=== PATIENT | male | born 1980 | race Caucasian/White ===

== ENCOUNTER 2016-07-17 12:32 | Inpatient (IN) | payer OTHER ==
[2016-07-17 16:54] VITALS: BMI 29.7
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
[2016-07-17] MEDS ORDERED: MAGNESIUM CITRATE 300 ML BOTTLE PO PRN (17:27)
[2016-07-17] MEDS ORDERED: MAG HYDROX/AL HYDROX/SIMETH 30 ML UNIT-DOSE CUP PO PRN (17:27)
[2016-07-17] MEDS ORDERED: MENTHOL/PHENOL 1 EACH UD MM PRN (17:27)
[2016-07-17] MEDS ORDERED: P-EPHED 60MG/TRIPROLIDI 2.5MG TABLET PO PRN (17:27)
[2016-07-17] MEDS ORDERED: LOPERAMIDE HCL 2 MG CAPSULE PO PRN (17:27)
[2016-07-17] MEDS ORDERED: guaiFENesin/D-METHORPHAN HB 10 ML UNIT-DOSE CUPS PO PRN (17:27)
[2016-07-17] MEDS ORDERED: NICOTINE POLACRILEX 4 MG GUM BUC PRN (17:27)
[2016-07-17] MEDS ORDERED: MAGNESIUM HYDROX 2400MG/30ML ORAL SUSPENSION 30 ML CUP PO PRN (17:27)
[2016-07-17] MEDS ORDERED: diazePAM 5 MG TABLET PO ONE (19:00)
[2016-07-17] MEDS ORDERED: diphenhydrAMINE HCL 50 MG CAPSULE PO PRN (22:00)
[2016-07-17] MEDS: IBUPROFEN 400 MG TABLET (FP) PO PRN (22:42)
[2016-07-17] MEDS: THIAMINE HCL 100 MG TABLET (FP) PO SCH (22:42)
[2016-07-17] MEDS: diazePAM 5 MG TABLET PO SCH (22:42)
[2016-07-17 23:11] LABS: URINE APPEARANCE CLEAR; URINE BILIRUBIN NEGATIVE (NEGATIVE); URINE BLOOD NEGATIVE (NEGATIVE); URINE COLOR YELLOW; URINE GLUCOSE (UA) NEGATIVE (NEGATIVE); URINE KETONE TRACE (NEGATIVE); URINE LEUK ESTERASE TRACE (NEGATIVE); URINE NITRITE NEGATIVE (NEGATIVE); URINE PROTEIN NEGATIVE (NEGATIVE); URINE UROBILINOGEN 4.0 E.U/dl E.U./dl (0.2-1.0)
[2016-07-17 23:18] LABS: URINE MUCUS RARE; URINE WBC 4 /hpf (3-5)
[2016-07-18] MEDS: diazePAM 5 MG TABLET PO SCH ×3 (05:57→22:11)
[2016-07-18 10:19] LABS: MCH 33.1 pg (25.7-33.7); MEAN CELL VOLUME 100.3 fl (80-96); PLATELET COUNT 174 K/MM3 (134-434); RDW 15.7 % (11.9-15.9); WHITE BLOOD COUNT 4.9 K/mm3 (4.0-10.0)
[2016-07-18] MEDS: PRENATAL VITAMINS W/ FOLIC ACID TABLET (FP) PO SCH (10:33)
[2016-07-18] MEDS: ACETAMINOPHEN 325 MG TABLET (FP) PO PRN (10:34)
[2016-07-18] MEDS: NICOTINE 21 MG/24 HOURS TOPICAL PATCH TD SCH (10:34)
[2016-07-18] MEDS: diazePAM 5 MG TABLET PO PRN ×2 (10:34→17:24)
[2016-07-18 10:40] LABS: ALBUMIN 3.7 g/dl (3.4-5.0); CALCIUM 8.9 mg/dL (8.5-10.1)
[2016-07-18 10:44] LABS: BILIRUBIN,TOTAL 0.7 mg/dL (0.2-1.0); COCKROFT - GAULT 79.48; CREATININE 1.6 mg/dL (0.7-1.3); TOT PROT 6.4 g/dl (6.4-8.2)
[2016-07-18] MEDS ORDERED: METHADONE HCL 40 MG DISPERSABLE TABLET PO ONE (11:00)
--- NOTE | 2016-07-18 13:44 | PN ---
S CIWA - CIWA Score Nausea/Vomitin Muscle Tremors: 3 Anxiety: 3 Agitation: 2 Paroxysmal Sweats: 1-Minimal Palms Moist Orientation: 0-Oriented Tacttile Disturbances: 1-Very Mild Itch/Numbness Auditory Disturbances: 1-Very Mild Visual Disturbances: 1-Very Mild Sensitivity Headache: 2-Mild CIWA-Ar Total Score: 17 BHS Progress Note (SOAP) Subjective: ALERT,IRRITABLE,ANXIOUS,INTERRUPTED SLEEP,TREMOR Objective: 07/18/16 13:41 Vital Signs Temperature 98.1 F 07/18/16 10:37 Pulse Rate 74 07/18/16 10:37 Respiratory Rate 18 07/18/16 10:37 Blood Pressure 152/94 07/18/16 10:37 O2 Sat by Pulse Oximetry (%) EKG NSR Laboratory Last Values WBC 4.9 K/mm3 (4.0-10.0) 07/18/16 06:05 RBC 4.23 M/mm3 (4.00-5.60) 07/18/16 06:05 Hgb 14.0 GM/dL (11.7-16.9) 07/18/16 06:05 Hct 42.5 % (35.4-49) 07/18/16 06:05 MCV 100.3 fl (80-96) H 07/18/16 06:05 MCHC 33.0 g/dl (32.0-35.9) 07/18/16 06:05 RDW 15.7 % (11.9-15.9) D 07/18/16 06:05 Plt Count 174 K/MM3 (134-434) 07/18/16 06:05 MPV 11.0 fl (7.5-11.1) D 07/18/16 06:05 Sodium 146 mmol/L (136-145) H 07/18/16 06:05 Potassium 4.3 mmol/L (3.5-5.1) 07/18/16 06:05 Chloride 104 mmol/L (98-107) 07/18/16 06:05 Carbon Dioxide 28 mmol/L (21-32) 07/18/16 06:05 Anion Gap 14 (8-16) 07/18/16 06:05 BUN 8 mg/dL (7-18) D 07/18/16 06:05 Creatinine 1.6 mg/dL (0.7-1.3) H D 07/18/16 06:05 Creat Clearance w eGFR 48.88 (>60) 07/18/16 06:05 Random Glucose 63 mg/dL (74-106) L 07/18/16 06:05 Calcium 8.9 mg/dL (8.5-10.1) 07/18/16 06:05 Total Bilirubin 0.7 mg/dL (0.2-1.0) 07/18/16 06:05 AST 19 U/L (15-37) D 07/18/16 06:05 ALT 32 U/L (12-78) D 07/18/16 06:05 Alkaline Phosphatase 117 U/L (45-117) 07/18/16 06:05 Total Protein 6.4 g/dl (6.4-8.2) 07/18/16 06:05 Albumin 3.7 g/dl (3.4-5.0) 07/18/16 06:05 Urine Color Yellow 07/17/16 20:34 Urine Appearance Clear 07/17/16 20:34 Urine pH 7.0 (5.0-8.0) D 07/17/16 20:34 Urine Protein Negative (NEGATIVE) 07/17/16 20:34 Urine Glucose (UA) Negative (NEGATIVE) 07/17/16 20:34 Urine Ketones Trace (NEGATIVE) H 07/17/16 20:34 Urine Blood Negative (NEGATIVE) 07/17/16 20:34 Urine Nitrite Negative (NEGATIVE) 07/17/16 20:34 Urine Bilirubin Negative (NEGATIVE) 07/17/16 20:34 Urine Urobilinogen 4.0 e.u/dl E.U./dl (0.2-1.0) 07/17/16 20:34 Ur Leukocyte Esterase Trace (NEGATIVE) H 07/17/16 20:34 Urine RBC None /hpf (0-3) 07/17/16 20:34 Urine WBC 4 /hpf (3-5) 07/17/16 20:34 Ur Epithelial Cells Rare /hpf (FEW) 07/17/16 20:34 Urine Mucus Rare 07/17/16 20:34 RPR Titer Nonreactive (NONREACTIVE) 07/18/16 06:05 07/18/16 13:43 Assessment: 07/18/16 13:43 WITHDRAWAL SYMPTOM 07/18/16 13:43 Plan: CONTINUE DETOX,ENCOURAGE ORAL FLUID
--- NOTE | 2016-07-18 14:28 | CONSULT ---
[facility] Psychiatric Consult - Data Date of interview: 07/18/16 Admission source: [facility] Identifying data: Readmission to [facility] for this 36 y/o male seeking detox treatment on for alcohol and xanax dependence.Patient is without children,domiciled (O setting),unemployed and supported on Public Assistance. Substance Abuse History: - Smoking Cessation. Smoking history: Current every day smoker. Have you smoked in the past 12 months: Yes. Aproximately how many cigarettes per day: 15. Cigars Per Day: 0. Hx Chewing Tobacco Use: No. Initiated information on smoking cessation: Yes. 'Breaking Loose' booklet given : 07/17/16. - Substance & Tx. History. Hx Alcohol Use: Yes. Hx Substance Use : Yes. Substance Use Type: Alcohol, Tranquilizers. Hx Substance Use Treatment : Yes. - Substances Abused. Alcohol. Route: Oral. Frequency: Daily. Amount used: gallon volka. Age of first use: 12. Date of Last Use: 07/17/16. Alprazolam (Xanax). Route: Oral. Frequency: Daily. Amount used: 10 mg. Age of first use: 14. Date of Last Use: 07/17/16. Confirmed by patient. Medical History: History ofsplenectomy (2013) and appendectomy (1984). Psychiatric History: Patient admits to a history of psychiatric hospitalizations at [facility] years ago.He states that he manufactured symptoms of depression/suicidal ideation in order to get [facility] to [facility] because he " had nowhere to go at the time." Mr Santos is currently on a methadone maintenance program (200 mg/day)at the [facility].He reports a remote history of suicide attempt via self-mutilation. Physical/Sexual Abuse/Trauma History: Patient denies. Additional Comment: Urine Drug Screen Results: BZO-Benzodiazepines, MTD- Methadone.Noted. Mental Status Exam - Mental Status Exam Alert and Oriented to: Time, Place, Person Cognitive Function: Good Patient Appearance: Unkempt, Disheveled Mood: Nervous, Withdrawn Affect: Mood Congruent, Constricted Patient Behavior: Fatigued, Appropriate, Cooperative Speech Pattern: Clear Voice Loudness: Normal Thought Process: Goal Oriented Thought Disorder: Not Present Hallucinations: Denies Suicidal Ideation: Denies Homicidal Ideation: Denies Insight/Judgement: Poor Sleep: Poorly, Difficulty falling asleep (requests ambien) Appetite: Good Muscle strength/Tone: Normal Gait/Station: Normal Psychiatric Findings - Problem List ([place] 1, 2,3) (1) Alcohol dependence with uncomplicated withdrawal Current Visit: Yes Status: Acute (2) Nicotine dependence Current Visit: Yes Status: Acute Qualifiers: Nicotine product type: cigarettes Substance use status: in withdrawal Qualified Code(s): F17.213 - Nicotine dependence, cigarettes, with withdrawal (3) Sedative, hypnotic or anxiolytic dependence with withdrawal, uncomplicated Current Visit: Yes Status: Acute (4) Opioid dependence on agonist therapy Current Visit: Yes Status: Acute (5) Substance induced mood disorder Current Visit: Yes Status: Acute (6) Insomnia Current Visit: Yes Status: Acute - Initial Treatment Plan Initial Treatment Plan: Psychoeducation.Detoxification.Sleep hygiene discussed with patient.Medication : ambien 5 mg po hs .Patient is made aware of potential for parasomnias.He agrees with this plan.Observation.NO script for ambien at discharge (patient is aware).
[2016-07-18] MEDS: CYCLOBENZAPRINE HCL 10 MG TABLET (FP) PO PRN (15:46)
[2016-07-18] MEDS: THIAMINE HCL 100 MG TABLET (FP) PO SCH (22:11)
[2016-07-18] MEDS: ZOLPIDEM TARTRATE 5 MG TABLET PO SCH (22:12)
[2016-07-19] MEDS: diazePAM 5 MG TABLET PO PRN ×3 (02:43→20:56)
[2016-07-19] MEDS: IBUPROFEN 400 MG TABLET (FP) PO PRN (02:46)
[2016-07-19] MEDS: METHADONE HCL 40 MG DISPERSABLE TABLET PO SCH (05:30)
[2016-07-19] MEDS: diazePAM 5 MG TABLET PO SCH ×2 (10:18→22:15)
[2016-07-19] MEDS: PRENATAL VITAMINS W/ FOLIC ACID TABLET (FP) PO SCH (10:18)
[2016-07-19] MEDS: NICOTINE 21 MG/24 HOURS TOPICAL PATCH TD SCH (10:19)
--- NOTE | 2016-07-19 11:14 | PN ---
S CIWA - CIWA Score Nausea/Vomitin Muscle Tremors: 3 Anxiety: 3 Agitation: 2 Paroxysmal Sweats: 1-Minimal Palms Moist Orientation: 0-Oriented Tacttile Disturbances: 1-Very Mild Itch/Numbness Auditory Disturbances: 1-Very Mild Visual Disturbances: 1-Very Mild Sensitivity Headache: 2-Mild CIWA-Ar Total Score: 17 BHS Progress Note (SOAP) Subjective: ALERT,IRRITABLE,ANXIOUS,PAIN IN THE BODY,TREMOR Objective: 07/19/16 11:13 Vital Signs Temperature 98.4 F 07/19/16 10:20 Pulse Rate 87 07/19/16 10:20 Respiratory Rate 18 07/19/16 10:20 Blood Pressure 146/95 07/19/16 10:20 O2 Sat by Pulse Oximetry (%) Assessment: 07/19/16 11:13 WITHDRAWAL SYMPTOM Plan: CONTINUE DETOX
[2016-07-19] MEDS: CYCLOBENZAPRINE HCL 10 MG TABLET (FP) PO PRN ×2 (13:54→22:15)
[2016-07-19] MEDS: ACETAMINOPHEN 325 MG TABLET (FP) PO PRN ×2 (13:55→20:56)
[2016-07-19] MEDS: ZOLPIDEM TARTRATE 5 MG TABLET PO SCH (22:15)
[2016-07-19] MEDS: THIAMINE HCL 100 MG TABLET (FP) PO SCH (22:15)
[2016-07-20] MEDS: METHADONE HCL 40 MG DISPERSABLE TABLET PO SCH (05:16)
[2016-07-20] MEDS: diazePAM 5 MG TABLET PO PRN (08:33)
[2016-07-20] MEDS: NICOTINE 21 MG/24 HOURS TOPICAL PATCH TD SCH (10:30)
[2016-07-20] MEDS: diazePAM 5 MG TABLET PO SCH ×2 (10:30→22:27)
[2016-07-20] MEDS: PRENATAL VITAMINS W/ FOLIC ACID TABLET (FP) PO SCH (10:30)
--- NOTE | 2016-07-20 10:35 | PN ---
BHS Progress Note (SOAP) Subjective: INTERRUPTED SLEEP, SWEATS, SHAKES , RESTLESS LEGS Objective: 07/20/16 10:32 Vital Signs Temperature 99.1 F 07/20/16 09:45 Pulse Rate 95 H 07/20/16 09:45 Respiratory Rate 20 07/20/16 09:45 Blood Pressure 121/90 07/20/16 09:45 O2 Sat by Pulse Oximetry (%) Laboratory Tests 07/17/16 07/18/16 07/18/16 20:34 06:05 06:05 WBC 4.9 RBC 4.23 Hgb 14.0 Hct 42.5 MCV 100.3 H MCHC 33.0 RDW 15.7 D Plt Count 174 MPV 11.0 D Sodium 146 H Potassium 4.3 Chloride 104 Carbon Dioxide 28 Anion Gap 14 BUN 8 D Creatinine 1.6 H D Creat Clearance w eGFR 48.88 Random Glucose 63 L Calcium 8.9 Total Bilirubin 0.7 AST 19 D ALT 32 D Alkaline Phosphatase 117 Total Protein 6.4 Albumin 3.7 Urine Color Yellow Urine Appearance Clear Urine pH 7.0 D Ur Specific Cornelius 1.015 Urine Protein Negative Urine Glucose (UA) Negative Urine Ketones Trace H Urine Blood Negative Urine Nitrite Negative Urine Bilirubin Negative Urine Urobilinogen 4.0 e.u/dl Ur Leukocyte Esterase Trace H Urine RBC None Urine WBC 4 Ur Epithelial Cells Rare Urine Mucus Rare RPR Titer 07/18/16 06:05 WBC RBC Hgb Hct MCV MCHC RDW Plt Count MPV Sodium Potassium Chloride Carbon Dioxide Anion Gap BUN Creatinine Creat Clearance w eGFR Random Glucose Calcium Total Bilirubin AST ALT Alkaline Phosphatase Total Protein Albumin Urine Color Urine Appearance Urine pH Ur Specific Cornelius Urine Protein Urine Glucose (UA) Urine Ketones Urine Blood Urine Nitrite Urine Bilirubin Urine Urobilinogen Ur Leukocyte Esterase Urine RBC Urine WBC Ur Epithelial Cells Urine Mucus RPR Titer Nonreactive PT AOX3 LYING IN BED SHAKING LEGS Assessment: 07/20/16 10:33 WITHDRAWAL SSX'S Plan: CONT. DETOX ' INCREASE FLUIDS FLEXEXERIL 10MG TID/PRN D/C IN AM
--- NOTE | 2016-07-20 13:05 | EKG ---
Test Reason : Blood Pressure : / mmHG Vent. Rate : 076 BPM Atrial Rate : 076 BPM P-R Int : 000 ms QRS Dur : 138 ms QT Int : 400 ms P-R-T Axes : 068 050 058 degrees QTc Int : 450 ms NORMAL SINUS RHYTHM RSR' OR QR PATTERN IN V1 SUGGESTS RIGHT VENTRICULAR CONDUCTION DELAY NONSPECIFIC T WAVE ABNORMALITY ABNORMAL ECG NO PREVIOUS ECGS AVAILABLE Confirmed by MELE THAKUR MD ([id number]) on 07/20/2016 1:05:23 PM Referred By: Confirmed By:MELE THAKUR MD
[2016-07-20 14:56] LABS: CALCIUM 9.1 mg/dL (8.5-10.1); COCKROFT - GAULT 141.31; CREATININE 0.9 mg/dL (0.7-1.3)
[2016-07-20] MEDS: CYCLOBENZAPRINE HCL 10 MG TABLET (FP) PO PRN (19:03)
[2016-07-20] MEDS: ACETAMINOPHEN 325 MG TABLET (FP) PO PRN (19:05)
[2016-07-20] MEDS: THIAMINE HCL 100 MG TABLET (FP) PO SCH (22:28)
[2016-07-20] MEDS: ZOLPIDEM TARTRATE 5 MG TABLET PO SCH (22:28)
[2016-07-21] MEDS: METHADONE HCL 40 MG DISPERSABLE TABLET PO SCH (05:28)
[2016-07-21 06:59] VITALS: TEMP 98.1
--- NOTE | 2016-07-21 08:35 | DS ---
[facility] Detox Discharge Summary Admission Date: 07/17/16 Discharge Date: 07/21/16 - History Present History: Alcohol Dependence, Cocaine Dependence, MMTP - Physical Exam Results Vital Signs: Vital Signs Temperature 98.1 F 07/21/16 06:00 Pulse Rate 58 L 07/21/16 06:00 Respiratory Rate 18 07/21/16 06:00 Blood Pressure 129/77 07/21/16 06:00 O2 Sat by Pulse Oximetry (%) - Treatment Hospital Course: Detox Protocol Followed, Detoxed Safely, Responded well, Discharged Condition Good, Rehab Referral Accepted - Medication Discharge Medications: Ambulatory Orders Gabapentin [Neurontin -] 300 mg PO TID #0 capsule 07/25/12 Amitriptyline HCl [Elavil -] 25 mg PO BID@1000,1400 #0 tablet 08/22/12 Amitriptyline HCl [Elavil -] 150 mg PO HS #0 tablet 08/22/12 Methadone [Dolophine -] 150 mg PO DAILY 10/31/12 - Diagnosis (1) Substance induced mood disorder Current Visit: Yes Status: Chronic (2) Alcohol dependence with uncomplicated withdrawal Current Visit: Yes Status: Chronic (3) Insomnia Current Visit: Yes Status: Chronic (4) Methadone maintenance therapy patient Current Visit: Yes Status: Chronic (5) Nicotine dependence Current Visit: Yes Status: Chronic Qualifiers: Nicotine product type: cigarettes Substance use status: in withdrawal Qualified Code(s): F17.213 - Nicotine dependence, cigarettes, with withdrawal (6) Sedative, hypnotic or anxiolytic dependence with withdrawal, uncomplicated Current Visit: Yes Status: Chronic (7) Depression (emotion) Current Visit: Yes Status: Suspected Qualifiers: Depression Type: dysthymia Qualified Code(s): F34.1 - Dysthymic disorder (8) S/P appendectomy Current Visit: Yes Status: Resolved (9) S/P splenectomy Current Visit: Yes Status: Resolved (10) Bipolar I disorder Current Visit: No Status: Active (11) Cocaine dependence Current Visit: Yes Status: Chronic - AMA Did Patient Leave Against Medical Advice: No
[2016-07-21 09:50] VITALS: BP 122/81; PULSE 94
[2016-07-21] MEDS ORDERED: diazePAM 5 MG TABLET PO SCH (10:00)
[2016-07-21] MEDS: PRENATAL VITAMINS W/ FOLIC ACID TABLET (FP) PO SCH (10:01)
[2016-07-21] MEDS: ACETAMINOPHEN 325 MG TABLET (FP) PO PRN (10:03)
== END 2016-07-21 10:13 | disposition home or self-care (01) | DRG 773 ==
LOC: YASAS 12:32 → Y6N 18:02
PROVIDERS: ADMIT Internal Medicine Addiction Medicine; ATTEND Internal Medicine Addiction Medicine
PROC: HZ2ZZZZ Detoxification Services for Substance Abuse Treatment (ICD-10-PCS; principal; 2016-07-17)
DX: F10.230 Alcohol dependence with withdrawal, uncomplicated (principal); F11.20 Opioid dependence, uncomplicated; F13.230 Sedative, hypnotic or anxiolytic dependence with withdrawal, uncomplicated; F14.20 Cocaine dependence, uncomplicated; F17.213 Nicotine dependence, cigarettes, with withdrawal; F19.24 Other psychoactive substance dependence with psychoactive substance-induced mood disorder; F34.1 Dysthymic disorder; F31.89 Other bipolar disorder; G47.00 Insomnia, unspecified; Z86.69 Personal history of other diseases of the nervous system and sense organs
CPT/HCPCS: 36415; 80048; 80053; 81003; 81015; 85027; 86593; 93005; 93010

== ENCOUNTER 2016-10-13 15:55 | Inpatient (IN) | payer OTHER ==
[2016-10-13 17:15] VITALS: BMI 24.3
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
[2016-10-13] MEDS ORDERED: P-EPHED 60MG/TRIPROLIDI 2.5MG TABLET PO PRN (19:14)
[2016-10-13] MEDS ORDERED: NICOTINE POLACRILEX 2 MG GUM BUC PRN (19:14)
[2016-10-13] MEDS ORDERED: LOPERAMIDE HCL 2 MG CAPSULE PO PRN (19:14)
[2016-10-13] MEDS ORDERED: MAG HYDROX/AL HYDROX/SIMETH 30 ML UNIT-DOSE CUP PO PRN (19:14)
[2016-10-13] MEDS ORDERED: diazePAM 5 MG TABLET PO ONE (19:14)
[2016-10-13] MEDS ORDERED: guaiFENesin/D-METHORPHAN HB 10 ML UNIT-DOSE CUPS PO PRN (19:14)
[2016-10-13] MEDS ORDERED: MAGNESIUM HYDROX 2400MG/30ML ORAL SUSPENSION 30 ML CUP PO PRN (19:14)
[2016-10-13] MEDS ORDERED: MENTHOL/PHENOL 1 EACH UD MM PRN (19:14)
[2016-10-13] MEDS ORDERED: MAGNESIUM CITRATE 300 ML BOTTLE PO PRN (19:14)
[2016-10-13] MEDS ORDERED: cloNIDine HCL 0.1 MG TABLET PO ONE (19:22)
[2016-10-13] MEDS ORDERED: BACITRACIN 15 GM TUBE TOPICAL OINTMENT TP SCH (22:00)
[2016-10-13] MEDS: diazePAM 5 MG TABLET PO SCH (22:40)
[2016-10-13] MEDS: GABAPENTIN 300 MG CAPSULE (FP) PO SCH (22:56)
[2016-10-13] MEDS: THIAMINE HCL 100 MG TABLET (FP) PO SCH (22:56)
[2016-10-13] MEDS: diphenhydrAMINE HCL 50 MG CAPSULE PO PRN (22:57)
[2016-10-13] MEDS: IBUPROFEN 400 MG TABLET (FP) PO PRN (22:57)
[2016-10-14 00:58] LABS: URINE APPEARANCE CLEAR; URINE BILIRUBIN NEGATIVE (NEGATIVE); URINE BLOOD NEGATIVE (NEGATIVE); URINE COLOR YELLOW; URINE GLUCOSE (UA) NEGATIVE (NEGATIVE); URINE KETONE NEGATIVE (NEGATIVE); URINE LEUK ESTERASE TRACE (NEGATIVE); URINE NITRITE NEGATIVE (NEGATIVE); URINE PROTEIN NEGATIVE (NEGATIVE)
[2016-10-14 01:18] LABS: URINE RBC <1 /hpf (0-3); URINE WBC <1 /hpf (3-5)
[2016-10-14] MEDS: diazePAM 5 MG TABLET PO SCH ×3 (05:38→22:37)
[2016-10-14] MEDS: GABAPENTIN 300 MG CAPSULE (FP) PO SCH ×3 (05:38→22:37)
[2016-10-14] MEDS: ACETAMINOPHEN 325 MG TABLET (FP) PO PRN ×2 (05:38→15:25)
[2016-10-14] MEDS: PRENATAL VITAMINS W/ FOLIC ACID TABLET (FP) PO SCH ×2 (08:48→09:41)
[2016-10-14] MEDS: diazePAM 5 MG TABLET PO PRN ×2 (08:48→17:20)
[2016-10-14] MEDS: NICOTINE 14 MG/24 HOURS TOPICAL PATCH TD SCH ×2 (08:48→09:40)
[2016-10-14] MEDS: IBUPROFEN 400 MG TABLET (FP) PO PRN (09:06)
[2016-10-14] MEDS ORDERED: cloNIDine HCL 0.1 MG TABLET PO ONE ×2 (09:50→18:00)
[2016-10-14 09:59] LABS: MCH 34.1 pg (25.7-33.7); MEAN CELL VOLUME 103.1 fl (80-96); MEAN PLT VOLUME 9.3 fl (7.5-11.1); PLATELET COUNT 170 K/MM3 (134-434); RDW 15.3 % (11.9-15.9); WHITE BLOOD COUNT 5.8 K/mm3 (4.0-10.0)
[2016-10-14] MEDS ORDERED: METHADONE HCL 10 MG TABLET PO SCH (10:00)
[2016-10-14] MEDS ORDERED: METHADONE 160 MG, METHADONE 10 MG PO SCH (10:10)
[2016-10-14] MEDS ORDERED: METHADONE HCL 10 MG TABLET ONE (10:15)
[2016-10-14] MEDS ORDERED: METHADONE HCL 40 MG DISPERSABLE TABLET ONE (10:16)
[2016-10-14] MEDS: BACITRACIN 0.9 GM PACKET TP SCH ×2 (10:19→22:37)
[2016-10-14 10:49] LABS: ALBUMIN 2.8 g/dl (3.4-5.0); ALK PHOS 75 U/L (45-117); ANION GAP 11 (8-16); BILIRUBIN,TOTAL 0.5 mg/dL (0.2-1.0); CALCIUM 8.4 mg/dL (8.5-10.1); CO2 29 mmol/L (21-32); CREATININE 0.6 mg/dL (0.7-1.3); GLUCOSE,RANDOM 66 mg/dL (74-106); SGOT/AST 31 U/L (15-37); SGPT/ALT 17 U/L (12-78); TOT PROT 5.7 g/dl (6.4-8.2)
--- NOTE | 2016-10-14 11:43 | PN ---
S CIWA - CIWA Score Nausea/Vomitin Muscle Tremors: 5 Anxiety: 4-Mod. Anxious/Guarded Agitation: 0-Normal Activity Paroxysmal Sweats: 3 Orientation: 2-Disoriented Date<2 days Tacttile Disturbances: 2-Mild Itch/Numbness/Burn Auditory Disturbances: 0-None Visual Disturbances: 0-None Headache: 2-Mild CIWA-Ar Total Score: 20 BHS Progress Note (SOAP) Subjective: Interrupted Sleep, tremors, H/A, Body Aches, Sweating. Objective: PT. A & O X 2 (DISORIENTED ABOUT DAY / DATE). PT. OBSERVED AMBULATING ON UNIT. NO ACUTE DISTRESS. 10/14/16 11:40 Vital Signs Temperature 97.4 F L 10/14/16 09:37 Pulse Rate 76 10/14/16 09:37 Respiratory Rate 18 10/14/16 09:37 Blood Pressure 135/88 10/14/16 09:37 O2 Sat by Pulse Oximetry (%) Laboratory Tests 10/14/16 10/14/16 10/14/16 00:30 07:40 07:40 WBC 5.8 RBC 3.30 L D Hgb 11.2 L D Hct 34.0 L D MCV 103.1 H MCH 34.1 H MCHC 33.0 RDW 15.3 Plt Count 170 MPV 9.3 D Sodium 142 Potassium 3.4 L Chloride 102 Carbon Dioxide 29 Anion Gap 11 BUN 8 D Creatinine 0.6 L D Creat Clearance w eGFR > 60 Random Glucose 66 L D Calcium 8.4 L Total Bilirubin 0.5 D AST 31 D ALT 17 D Alkaline Phosphatase 75 D Total Protein 5.7 L Albumin 2.8 L D Urine Color Yellow Urine Appearance Clear Urine pH 5.0 D Urine Protein Negative Urine Glucose (UA) Negative Urine Ketones Negative Urine Blood Negative Urine Nitrite Negative Urine Bilirubin Negative Urine Urobilinogen 2.0 Ur Leukocyte Esterase Trace Urine RBC <1 Urine WBC <1 RPR Titer 10/14/16 07:40 WBC RBC Hgb Hct MCV MCH MCHC RDW Plt Count MPV Sodium Potassium Chloride Carbon Dioxide Anion Gap BUN Creatinine Creat Clearance w eGFR Random Glucose Calcium Total Bilirubin AST ALT Alkaline Phosphatase Total Protein Albumin Urine Color Urine Appearance Urine pH Urine Protein Urine Glucose (UA) Urine Ketones Urine Blood Urine Nitrite Urine Bilirubin Urine Urobilinogen Ur Leukocyte Esterase Urine RBC Urine WBC RPR Titer Nonreactive LABS NOTED. Assessment: WITHDRAWAL SYMPTOMS. 10/14/16 11:42 Plan: CONTINUE DETOX. FEOSOL, 325 MG PO WITH MEALS. K, 20 MEQ PO X 1 NOW, THEN 20 MEQ PO BID AFTER. CLONIDINE, 0.1 MG PO x 1 FOR DETOX SYMPTOMS. NOTE: PER MMTP PROGRAM, PATIENT IS CURRENTLY HAVING DAILY METHADONE MAINTENANCE DOSE TITRATED UP TO 200 MG. VERIFIED WITH Shaniqua STOVER RN ([facility], ) BY Kelly CONTRERAS RN.
[2016-10-14] MEDS: POTASSIUM CHLORIDE TABS 20 MEQ TABLET.ER (FP) PO SCH ×2 (13:39→22:37)
[2016-10-14] MEDS: hydrOXYzine PAMOATE 50 MG CAPSULE (FP) PO PRN ×2 (13:41→19:12)
--- NOTE | 2016-10-14 14:50 | EKG ---
Test Reason : Blood Pressure : / mmHG Vent. Rate : 101 BPM Atrial Rate : 101 BPM P-R Int : 182 ms QRS Dur : 092 ms QT Int : 366 ms P-R-T Axes : 058 037 044 degrees QTc Int : 474 ms SINUS TACHYCARDIA POSSIBLE LEFT ATRIAL ENLARGEMENT BORDERLINE ECG WHEN COMPARED WITH ECG OF 17-JUL-2016 19:20, NO SIGNIFICANT CHANGE WAS FOUND Confirmed by OSCAR FAUSTIN MD ([id number]) on 10/14/2016 2:50:23 PM Referred By: Confirmed By:OSCAR FAUSTNI MD
--- NOTE | 2016-10-14 14:54 | CONSULT ---
[facility] Psychiatric Consult - Data Date of interview: 10/14/16 Admission source: [facility] Identifying data: Another admission to [facility] for this 36 y/o [place]-born male seeking detox treatment on for alcohol and xanax dependence.Patient is without children,domiciled ([facility] setting), unemployed and supported on Public Assistance. Substance Abuse History: Discussed with patient.Mr Santos confirms this report. Smoking Cessation. Smoking history: Current every day smoker. Have you smoked in the past 12 months: Yes. Aproximately how many cigarettes per day: 15. Cigars Per Day: 0. Hx Chewing Tobacco Use: No. Initiated information on smoking cessation: Yes. 'Breaking Loose' booklet given: 10/13/16. - Substance & Tx. History. Hx Alcohol Use: Yes. Hx Substance Use: Yes. Substance Use Type : Alcohol. Hx Substance Use Treatment: Yes (DETOX: 07/2016). - Substances Abused. Alcohol. Frequency: Daily. Amount used: 1/2 GALLON OF LIQUOR. Age of first use: 11. Date of Last Use: 10/13/16. Alprazolam (Xanax). Route: Oral. Frequency: Daily. Amount used: 8MG. Age of first use: 20. Date of Last Use: 10/12/16 Medical History: History ofsplenectomy (2013) and appendectomy (1984). Psychiatric History: History of three psychiatric hospitalizations (all at [facility]) years ago.No OPD care for several months. Mr Santos is currently on a methadone maintenance program (190 mg/day) at the [facility].He reports a remote history of suicide attempt via self- mutilation. Physical/Sexual Abuse/Trauma History: Patient denies. Additional Comment: Urine Drug Screen Results: BZO-Benzodiazepines, MTD- Methadone.Noted. Mental Status Exam - Mental Status Exam Alert and Oriented to: Time, Place, Person Cognitive Function: Good Patient Appearance: Unkempt, Disheveled Mood: Withdrawn, Anxious Affect: Constricted Patient Behavior: Fatigued, Appropriate, Cooperative Speech Pattern: Clear Voice Loudness: Normal Thought Process: Goal Oriented Thought Disorder: Not Present Hallucinations: Denies Suicidal Ideation: Denies Homicidal Ideation: Denies Insight/Judgement: Poor Sleep: Poorly, Difficulty falling asleep Appetite: Good Muscle strength/Tone: Normal Gait/Station: Normal Psychiatric Findings - Problem List ([place] 1, 2,3) (1) Alcohol dependence with uncomplicated withdrawal Current Visit: Yes Status: Acute (2) Sedative, hypnotic or anxiolytic dependence with withdrawal, uncomplicated Current Visit: Yes Status: Acute (3) Opioid dependence on agonist therapy Current Visit: Yes Status: Acute (4) Nicotine dependence Current Visit: Yes Status: Acute Qualifiers: Nicotine product type: cigarettes Substance use status: in withdrawal Qualified Code(s): F17.213 - Nicotine dependence, cigarettes, with withdrawal (5) Substance induced mood disorder Current Visit: Yes Status: Acute (6) Insomnia Current Visit: Yes Status: Acute - Initial Treatment Plan Initial Treatment Plan: Psychoeducation.Detoxification.Ambien 10 mg po hs.Patient is made aware of potential for parasomnias.He agrees with careplan.Observation.
--- NOTE | 2016-10-14 15:06 | PN ---
S Progress Note Note: BP still elevated (141/95) and patient currently experiencing significant Detox symptoms. Patient denies any history of HTN or of treatment for HTN. Clonidine, 0.1 mg PO X 1 ordered for 1800. Rogerio Lubin HAMMER[employer] HELPER
[2016-10-14] MEDS: FERROUS SO4 325 MG TABLET (FP) PO SCH (17:20)
[2016-10-14] MEDS: ZOLPIDEM TARTRATE 10 MG TABLET (PARK CARE ONLY) PO PRN (22:37)
[2016-10-14] MEDS: THIAMINE HCL 100 MG TABLET (FP) PO SCH (22:37)
[2016-10-15] MEDS ORDERED: METHADONE HCL 10 MG TABLET ONE (04:03)
[2016-10-15] MEDS ORDERED: METHADONE HCL 40 MG DISPERSABLE TABLET ONE (04:03)
[2016-10-15] MEDS: diazePAM 5 MG TABLET PO PRN ×2 (05:39→14:11)
[2016-10-15] MEDS: GABAPENTIN 300 MG CAPSULE (FP) PO SCH ×3 (05:39→22:41)
[2016-10-15] MEDS ORDERED: METHADONE HCL 10 MG TABLET PO ONE (06:00)
[2016-10-15] MEDS ORDERED: METHADONE 160 MG, METHADONE 20 MG PO ONE (06:00)
[2016-10-15] MEDS ORDERED: METHADONE HCL 10 MG TABLET PO SCH (06:00)
[2016-10-15] MEDS: ACETAMINOPHEN 325 MG TABLET (FP) PO PRN ×2 (07:32→22:44)
[2016-10-15] MEDS: hydrOXYzine PAMOATE 50 MG CAPSULE (FP) PO PRN ×2 (07:32→17:07)
[2016-10-15] MEDS: FERROUS SO4 325 MG TABLET (FP) PO SCH ×2 (10:04→17:04)
--- NOTE | 2016-10-15 10:16 | PN ---
[facility] CIWA - CIWA Score Nausea/Vomitin Muscle Tremors: 3 Anxiety: 4-Mod. Anxious/Guarded Agitation: 3 Paroxysmal Sweats: 3 Orientation: 0-Oriented Tacttile Disturbances: 0-None Auditory Disturbances: 0-None Visual Disturbances: 0-None Headache: 0-None Present CIWA-Ar Total Score: 16 S Progress Note (SOAP) Subjective: Anxiety,tremors,sweating,interrupted sleep,restless. C/O draining abscess rt. arm in the bicep area. Objective: 10/15/16 10:15 Vital Signs - 8 hr 10/15/16 10/15/16 10/15/16 04:19 06:44 09:25 Temperature 97.1 F L 98.9 F Pulse Rate 68 74 Respiratory 18 20 18 Rate Blood Pressure 150/97 138/92 Laboratory Last Values WBC 5.8 K/mm3 (4.0-10.0) 10/14/16 07:40 RBC 3.30 M/mm3 (4.00-5.60) L D 10/14/16 07:40 Hgb 11.2 GM/dL (11.7-16.9) L D 10/14/16 07:40 Hct 34.0 % (35.4-49) L D 10/14/16 07:40 MCV 103.1 fl (80-96) H 10/14/16 07:40 MCH 34.1 pg (25.7-33.7) H 10/14/16 07:40 MCHC 33.0 g/dl (32.0-35.9) 10/14/16 07:40 RDW 15.3 % (11.9-15.9) 10/14/16 07:40 Plt Count 170 K/MM3 (134-434) 10/14/16 07:40 MPV 9.3 fl (7.5-11.1) D 10/14/16 07:40 Sodium 142 mmol/L (136-145) 10/14/16 07:40 Potassium 3.4 mmol/L (3.5-5.1) L 10/14/16 07:40 Chloride 102 mmol/L (98-107) 10/14/16 07:40 Carbon Dioxide 29 mmol/L (21-32) 10/14/16 07:40 Anion Gap 11 (8-16) 10/14/16 07:40 BUN 8 mg/dL (7-18) D 10/14/16 07:40 Creatinine 0.6 mg/dL (0.7-1.3) L D 10/14/16 07:40 Creat Clearance w eGFR > 60 (>60) 10/14/16 07:40 Random Glucose 66 mg/dL (74-106) L D 10/14/16 07:40 Calcium 8.4 mg/dL (8.5-10.1) L 10/14/16 07:40 Total Bilirubin 0.5 mg/dL (0.2-1.0) D 10/14/16 07:40 AST 31 U/L (15-37) D 10/14/16 07:40 ALT 17 U/L (12-78) D 10/14/16 07:40 Alkaline Phosphatase 75 U/L (45-117) D 10/14/16 07:40 Total Protein 5.7 g/dl (6.4-8.2) L 10/14/16 07:40 Albumin 2.8 g/dl (3.4-5.0) L D 10/14/16 07:40 Urine Color Yellow 10/14/16 00:30 Urine Appearance Clear 10/14/16 00:30 Urine pH 5.0 (5.0-8.0) D 10/14/16 00:30 Ur Specific [place] 1.025 (1.005-1.025) 10/14/16 00:30 Urine Protein Negative (NEGATIVE) 10/14/16 00:30 Urine Glucose (UA) Negative (NEGATIVE) 10/14/16 00:30 Urine Ketones Negative (NEGATIVE) 10/14/16 00:30 Urine Blood Negative (NEGATIVE) 10/14/16 00:30 Urine Nitrite Negative (NEGATIVE) 10/14/16 00:30 Urine Bilirubin Negative (NEGATIVE) 10/14/16 00:30 Urine Urobilinogen 2.0 mg/dL (0.2-1.0) 10/14/16 00:30 Ur Leukocyte Esterase Trace (NEGATIVE) 10/14/16 00:30 Urine RBC <1 /hpf (0-3) 10/14/16 00:30 Urine WBC <1 /hpf (3-5) 10/14/16 00:30 RPR Titer Nonreactive (NONREACTIVE) 10/14/16 07:40 labs noted Assessment: 10/15/16 10:16 Withdrawal sx. Plan: continue detox
[2016-10-15] MEDS: BACITRACIN 0.9 GM PACKET TP SCH ×2 (11:04→22:41)
[2016-10-15] MEDS: POTASSIUM CHLORIDE TABS 20 MEQ TABLET.ER (FP) PO SCH ×2 (11:04→22:42)
[2016-10-15] MEDS: PRENATAL VITAMINS W/ FOLIC ACID TABLET (FP) PO SCH (11:04)
[2016-10-15] MEDS: diazePAM 5 MG TABLET PO SCH ×2 (11:04→22:42)
[2016-10-15] MEDS: IBUPROFEN 400 MG TABLET (FP) PO PRN ×2 (11:06→17:07)
[2016-10-15] MEDS: NICOTINE 14 MG/24 HOURS TOPICAL PATCH TD SCH (11:08)
[2016-10-15] MEDS: SULFAMETHOXAZOLE/TRIMETHOPRIM 800MG/160MG D.S. TABLET PO SCH ×3 (14:08→22:50)
[2016-10-15] MEDS: THIAMINE HCL 100 MG TABLET (FP) PO SCH (22:41)
[2016-10-15] MEDS: ZOLPIDEM TARTRATE 10 MG TABLET (PARK CARE ONLY) PO PRN (22:41)
[2016-10-16] MEDS: diphenhydrAMINE HCL 50 MG CAPSULE PO PRN (01:01)
[2016-10-16] MEDS: diazePAM 5 MG TABLET PO PRN ×2 (03:42→13:55)
[2016-10-16] MEDS: ACETAMINOPHEN 325 MG TABLET (FP) PO PRN ×3 (03:43→22:26)
[2016-10-16] MEDS ORDERED: METHADONE HCL 40 MG DISPERSABLE TABLET ONE (04:57)
[2016-10-16] MEDS ORDERED: METHADONE HCL 10 MG TABLET ONE (04:57)
[2016-10-16] MEDS: GABAPENTIN 300 MG CAPSULE (FP) PO SCH ×3 (05:26→22:26)
[2016-10-16] MEDS ORDERED: METHADONE HCL 10 MG TABLET PO ONE ×2 (06:00)
[2016-10-16] MEDS ORDERED: METHADONE 160 MG, METHADONE 30 MG PO ONE (06:00)
[2016-10-16] MEDS: BACITRACIN 0.9 GM PACKET TP SCH ×2 (10:37→22:25)
[2016-10-16] MEDS: FERROUS SO4 325 MG TABLET (FP) PO SCH ×2 (10:37→17:33)
[2016-10-16] MEDS: PRENATAL VITAMINS W/ FOLIC ACID TABLET (FP) PO SCH (10:37)
[2016-10-16] MEDS: SULFAMETHOXAZOLE/TRIMETHOPRIM 800MG/160MG D.S. TABLET PO SCH ×4 (10:37→22:26)
[2016-10-16] MEDS: NICOTINE 14 MG/24 HOURS TOPICAL PATCH TD SCH (10:37)
[2016-10-16] MEDS: diazePAM 5 MG TABLET PO SCH ×2 (10:37→22:25)
[2016-10-16] MEDS: POTASSIUM CHLORIDE TABS 20 MEQ TABLET.ER (FP) PO SCH ×2 (10:37→22:26)
[2016-10-16] MEDS: IBUPROFEN 400 MG TABLET (FP) PO PRN (10:38)
--- NOTE | 2016-10-16 15:03 | PN ---
BHS Progress Note (SOAP) Subjective: Sweating, Vomiting, Body Aches, Tremors, H/A, Interrupted sleep. Objective: PT. A & O X 1 (DISORIENTED ABOUT DAY / DATE AND ABOUT CURRENT LOCATION). NO ACUTE DISTRESS. 10/16/16 15:00 Vital Signs Temperature 97.5 F L 10/16/16 13:30 Pulse Rate 90 10/16/16 13:30 Respiratory Rate 18 10/16/16 13:30 Blood Pressure 119/88 10/16/16 13:30 O2 Sat by Pulse Oximetry (%) Laboratory Tests 10/14/16 10/14/16 10/14/16 00:30 07:40 07:40 WBC 5.8 RBC 3.30 L D Hgb 11.2 L D Hct 34.0 L D MCV 103.1 H MCH 34.1 H MCHC 33.0 RDW 15.3 Plt Count 170 MPV 9.3 D Sodium 142 Potassium 3.4 L Chloride 102 Carbon Dioxide 29 Anion Gap 11 BUN 8 D Creatinine 0.6 L D Creat Clearance w eGFR > 60 Random Glucose 66 L D Calcium 8.4 L Total Bilirubin 0.5 D AST 31 D ALT 17 D Alkaline Phosphatase 75 D Total Protein 5.7 L Albumin 2.8 L D Urine Color Yellow Urine Appearance Clear Urine pH 5.0 D Ur Specific [place] 1.025 Urine Protein Negative Urine Glucose (UA) Negative Urine Ketones Negative Urine Blood Negative Urine Nitrite Negative Urine Bilirubin Negative Urine Urobilinogen 2.0 Ur Leukocyte Esterase Trace Urine RBC <1 Urine WBC <1 RPR Titer 10/14/16 07:40 WBC RBC Hgb Hct MCV MCH MCHC RDW Plt Count MPV Sodium Potassium Chloride Carbon Dioxide Anion Gap BUN Creatinine Creat Clearance w eGFR Random Glucose Calcium Total Bilirubin AST ALT Alkaline Phosphatase Total Protein Albumin Urine Color Urine Appearance Urine pH Ur Specific [place] Urine Protein Urine Glucose (UA) Urine Ketones Urine Blood Urine Nitrite Urine Bilirubin Urine Urobilinogen Ur Leukocyte Esterase Urine RBC Urine WBC RPR Titer Nonreactive LABS NOTED. Assessment: 10/16/16 15:01 WITHDRAWAL SYMPTOMS. Plan: CONTINUE DETOX.
[2016-10-16] MEDS: hydrOXYzine PAMOATE 50 MG CAPSULE (FP) PO PRN ×2 (15:31→20:29)
[2016-10-16] MEDS: THIAMINE HCL 100 MG TABLET (FP) PO SCH (22:26)
[2016-10-16] MEDS: ZOLPIDEM TARTRATE 10 MG TABLET (PARK CARE ONLY) PO PRN (22:26)
[2016-10-17] MEDS: GABAPENTIN 300 MG CAPSULE (FP) PO SCH (05:23)
[2016-10-17] MEDS ORDERED: METHADONE HCL 40 MG DISPERSABLE TABLET PO ONE (06:00)
[2016-10-17] MEDS: hydrOXYzine PAMOATE 50 MG CAPSULE (FP) PO PRN ×2 (06:38→11:28)
[2016-10-17] MEDS: FERROUS SO4 325 MG TABLET (FP) PO SCH (07:06)
[2016-10-17 09:23] VITALS: BP 116/90; PULSE 101; TEMP 98.7
[2016-10-17] MEDS ORDERED: diazePAM 5 MG TABLET PO SCH (10:00)
[2016-10-17] MEDS: BACITRACIN 0.9 GM PACKET TP SCH (10:28)
[2016-10-17] MEDS: POTASSIUM CHLORIDE TABS 20 MEQ TABLET.ER (FP) PO SCH (10:28)
[2016-10-17] MEDS: PRENATAL VITAMINS W/ FOLIC ACID TABLET (FP) PO SCH (10:28)
[2016-10-17] MEDS: SULFAMETHOXAZOLE/TRIMETHOPRIM 800MG/160MG D.S. TABLET PO SCH (10:28)
[2016-10-17] MEDS: NICOTINE 14 MG/24 HOURS TOPICAL PATCH TD SCH (10:58)
--- NOTE | 2016-10-17 14:12 | DS ---
[facility] Detox Discharge Summary Admission Date: 10/13/16 Discharge Date: 10/17/16 - History Present History: Alcohol Dependence, Sedative Dependence, MMTP Additional Comments: PATIENT GOING TO [facility]. PATIENT ADVISED TO FOLLOW-UP THERE FOR AFTERCARE PER DISCHARGE ARRANGEMENT. PATIENT ALSO ADVISED TO COMPLETE FULL COURSE OF ANTIBIOTIC (BACTRIM DS, PO QID X 7 DAYS) FOR WOUND ON RIGHT UPPER ARM. Pertinent Past History: Bipolar disorder, Depression / Anxiety, Insomnia, MMTP, History of Seizures ( ETOH-Related). - Physical Exam Results Vital Signs: Vital Signs Temperature 98.7 F 10/17/16 09:22 Pulse Rate 101 H 10/17/16 09:22 Respiratory Rate 20 10/17/16 09:22 Blood Pressure 116/90 10/17/16 09:22 O2 Sat by Pulse Oximetry (%) Pertinent Admission Physical Exam Findings: WITHDRAWAL SYMPTOMS. Laboratory Tests 10/14/16 10/14/16 10/14/16 00:30 07:40 07:40 WBC 5.8 RBC 3.30 L D Hgb 11.2 L D Hct 34.0 L D MCV 103.1 H MCH 34.1 H MCHC 33.0 RDW 15.3 Plt Count 170 MPV 9.3 D Sodium 142 Potassium 3.4 L Chloride 102 Carbon Dioxide 29 Anion Gap 11 BUN 8 D Creatinine 0.6 L D Creat Clearance w eGFR > 60 Random Glucose 66 L D Calcium 8.4 L Total Bilirubin 0.5 D AST 31 D ALT 17 D Alkaline Phosphatase 75 D Total Protein 5.7 L Albumin 2.8 L D Urine Color Yellow Urine Appearance Clear Urine pH 5.0 D Ur Specific [place] 1.025 Urine Protein Negative Urine Glucose (UA) Negative Urine Ketones Negative Urine Blood Negative Urine Nitrite Negative Urine Bilirubin Negative Urine Urobilinogen 2.0 Ur Leukocyte Esterase Trace Urine RBC <1 Urine WBC <1 RPR Titer 10/14/16 07:40 WBC RBC Hgb Hct MCV MCH MCHC RDW Plt Count MPV Sodium Potassium Chloride Carbon Dioxide Anion Gap BUN Creatinine Creat Clearance w eGFR Random Glucose Calcium Total Bilirubin AST ALT Alkaline Phosphatase Total Protein Albumin Urine Color Urine Appearance Urine pH Ur Specific [place] Urine Protein Urine Glucose (UA) Urine Ketones Urine Blood Urine Nitrite Urine Bilirubin Urine Urobilinogen Ur Leukocyte Esterase Urine RBC Urine WBC RPR Titer Nonreactive LABS NOTED. - Treatment Hospital Course: Detox Protocol Followed, Detoxed Safely, Responded well, Discharged Condition Good, Rehab Referral Accepted Patient has Accepted a Rehab Referral to: [facility]. - Medication Discharge Medications: Ambulatory Orders Gabapentin [Neurontin -] 300 mg PO TID #0 capsule 07/25/12 - Diagnosis (1) Alcohol dependence with uncomplicated withdrawal Status: Acute (2) Insomnia Status: Acute Qualifiers: Insomnia type: unspecified Qualified Code(s): G47.00 - Insomnia, unspecified (3) Sedative, hypnotic or anxiolytic dependence with withdrawal, uncomplicated Status: Acute (4) Substance induced mood disorder Status: Acute (5) Methadone maintenance therapy patient Status: Chronic (6) Nicotine dependence Status: Chronic Qualifiers: Nicotine product type: cigarettes Substance use status: uncomplicated Qualified Code(s): F17.210 - Nicotine dependence, cigarettes, uncomplicated (7) Opioid dependence on agonist therapy Status: Chronic - AMA Did Patient Leave Against Medical Advice: No
== END 2016-10-17 11:35 | disposition other institution (70) | DRG 773 ==
LOC: YASAS 15:55 → Y3N 19:40
PROVIDERS: ADMIT Internal Medicine; ATTEND Internal Medicine
PROC: HZ2ZZZZ Detoxification Services for Substance Abuse Treatment (ICD-10-PCS; principal; 2016-10-13)
DX: F13.230 Sedative, hypnotic or anxiolytic dependence with withdrawal, uncomplicated (principal); F10.230 Alcohol dependence with withdrawal, uncomplicated; F11.20 Opioid dependence, uncomplicated; F17.210 Nicotine dependence, cigarettes, uncomplicated; F19.24 Other psychoactive substance dependence with psychoactive substance-induced mood disorder; G47.00 Insomnia, unspecified; Z86.69 Personal history of other diseases of the nervous system and sense organs
CPT/HCPCS: 36415; 80053; 81003; 81015; 85027; 86593; 93005; 93010

== ENCOUNTER 2016-10-17 12:01 | Inpatient (IN) | payer OTHER ==
[2016-10-17 13:25] VITALS: BMI 28.1
--- NOTE | 2016-10-17 13:41 | DS ---
[facility] Detox Discharge Summary Admission Date: 10/17/16 Discharge Date: 10/17/16 - History Present History: Alcohol Dependence, Sedative Dependence, MMTP Additional Comments: PT. GOING TO [facility]. PATIENT ADVISED TO FOLLOW-UP THERE PER DISCHARGE ARRANGEMENT. Pertinent Past History: Depression / Anxiety, Bipolar disorder, MMTP, History of Seizures (ETOH-Related) , Insomnia. - Physical Exam Results Vital Signs: Vital Signs Temperature 98.6 F 10/17/16 13:07 Pulse Rate 93 H 10/17/16 13:07 Respiratory Rate 20 10/17/16 13:07 Blood Pressure 122/75 10/17/16 13:07 O2 Sat by Pulse Oximetry (%) Pertinent Admission Physical Exam Findings: WITHDRAWAL SYMPTOMS. ADMISSION LABS NOTED. - Treatment Hospital Course: Detox Protocol Followed, Detoxed Safely, Responded well, Discharged Condition Good, Rehab Referral Accepted Patient has Accepted a Rehab Referral to: [facility]. - Medication Discharge Medications: Ambulatory Orders Gabapentin [Neurontin -] 300 mg PO TID #0 capsule 07/25/12 - Diagnosis (1) Alcohol dependence with uncomplicated withdrawal Current Visit: Yes Status: Acute (2) Insomnia Current Visit: Yes Status: Acute Qualifiers: Insomnia type: unspecified Qualified Code(s): G47.00 - Insomnia, unspecified (3) Nicotine dependence Current Visit: Yes Status: Chronic Qualifiers: Nicotine product type: cigarettes Substance use status: uncomplicated Qualified Code(s): F17.210 - Nicotine dependence, cigarettes, uncomplicated (4) Opioid dependence on agonist therapy Current Visit: Yes Status: Chronic (5) Sedative, hypnotic or anxiolytic dependence with withdrawal, uncomplicated Current Visit: Yes Status: Acute (6) Substance induced mood disorder Current Visit: Yes Status: Acute (7) Methadone maintenance therapy patient Current Visit: Yes Status: Chronic - AMA Did Patient Leave Against Medical Advice: No
[2016-10-17] MEDS ORDERED: MAG HYDROX/AL HYDROX/SIMETH 30 ML UNIT-DOSE CUP PO PRN (13:50)
[2016-10-17] MEDS ORDERED: MENTHOL/PHENOL 1 EACH UD MM PRN (13:50)
[2016-10-17] MEDS ORDERED: NICOTINE POLACRILEX 2 MG GUM BUC PRN (13:50)
[2016-10-17] MEDS ORDERED: guaiFENesin/D-METHORPHAN HB 10 ML UNIT-DOSE CUPS PO PRN (13:50)
[2016-10-17] MEDS ORDERED: MAGNESIUM CITRATE 300 ML BOTTLE PO PRN (13:50)
[2016-10-17] MEDS ORDERED: P-EPHED 60MG/TRIPROLIDI 2.5MG TABLET PO PRN (13:50)
[2016-10-17] MEDS ORDERED: LOPERAMIDE HCL 2 MG CAPSULE PO PRN (13:50)
[2016-10-17] MEDS ORDERED: MAGNESIUM HYDROX 2400MG/30ML ORAL SUSPENSION 30 ML CUP PO PRN (13:50)
[2016-10-17] MEDS: SULFAMETHOXAZOLE/TRIMETHOPRIM 800MG/160MG D.S. TABLET PO SCH ×3 (14:21→21:36)
[2016-10-17] MEDS: IBUPROFEN 400 MG TABLET (FP) PO PRN (14:22)
--- NOTE | 2016-10-17 15:07 | PN ---
TRAN Progress Note Note: PATIENT LEFT [facility] DETOX UNIT AND TAKEN TO [facility] UNIT IN STABLE MEDICAL CONDITION. MEDICAL HISTORY, DETOX ADMISSION LABS, MEDICATIONS PRESCRIBED WHILE PATIENT WAS ADMITTED FOR DETOX, AND HOME MEDICATIONS ALL REVIEWED PRIOR TO PATIENT'S ADMISSION TO REHAB. Rogerio BELL NP.
--- NOTE | 2016-10-17 15:35 | HP ---
[facility] Rehab Assess/Revision - Admission History Admitted to Rehab from: [facility] Date of Admission to Rehab: 10/17/16 - Vital signs Vital Signs: Vital Signs Period Temp Pulse Resp BP Sys/Bermudez Pulse Ox Last 24 Hr 98.6 F-98.6 F 93-93 20-20 122-122/75-75 - Findings Detox History & Physical reviewed: Yes Concur with findings: Yes Comments/Additional Findings: Abscess right arm is resolving, the area is soft, wound is clean and healing. We'll add Levaquin x 7 days
[2016-10-17] MEDS: LEVOFLOXACIN 500 MG TABLET (FP) PO SCH (17:50)
[2016-10-17] MEDS: hydrOXYzine PAMOATE 50 MG CAPSULE (FP) PO PRN (17:51)
[2016-10-17] MEDS: GABAPENTIN 300 MG CAPSULE (FP) PO SCH (21:36)
[2016-10-17] MEDS: THIAMINE HCL 100 MG TABLET (FP) PO SCH (21:36)
[2016-10-17] MEDS: POTASSIUM CHLORIDE TABS 20 MEQ TABLET.ER (FP) PO SCH (21:36)
[2016-10-17] MEDS: diphenhydrAMINE HCL 50 MG CAPSULE PO PRN (21:38)
[2016-10-17] MEDS: BACITRACIN 15 GM TUBE TOPICAL OINTMENT TP SCH (21:56)
[2016-10-18] MEDS ORDERED: BACITRACIN 0.9 GM PACKET ONE (05:09)
[2016-10-18] MEDS: BACITRACIN 15 GM TUBE TOPICAL OINTMENT TP SCH ×2 (06:23→13:08)
[2016-10-18] MEDS: GABAPENTIN 300 MG CAPSULE (FP) PO SCH ×3 (06:24→21:34)
[2016-10-18] MEDS: METHADONE HCL 40 MG DISPERSABLE TABLET PO SCH (06:24)
[2016-10-18] MEDS: hydrOXYzine PAMOATE 50 MG CAPSULE (FP) PO PRN ×3 (08:50→17:46)
[2016-10-18] MEDS: PRENATAL VITAMINS W/ FOLIC ACID TABLET (FP) PO SCH (10:07)
[2016-10-18] MEDS: SULFAMETHOXAZOLE/TRIMETHOPRIM 800MG/160MG D.S. TABLET PO SCH ×4 (10:07→21:34)
[2016-10-18] MEDS: POTASSIUM CHLORIDE TABS 20 MEQ TABLET.ER (FP) PO SCH ×2 (10:07→21:34)
[2016-10-18] MEDS: NICOTINE 14 MG/24 HOURS TOPICAL PATCH TD SCH (10:07)
[2016-10-18] MEDS: LEVOFLOXACIN 500 MG TABLET (FP) PO SCH (10:07)
[2016-10-18 11:39] LABS: HIV 1 & 2 AB NEGATIVE; HIV 1 AGp24 NEGATIVE
[2016-10-18] MEDS: ACETAMINOPHEN 325 MG TABLET (FP) PO PRN (13:08)
[2016-10-18] MEDS: BACITRACIN 0.9 GM PACKET TP SCH ×2 (15:10→21:34)
[2016-10-18] MEDS: IBUPROFEN 400 MG TABLET (FP) PO PRN (20:21)
[2016-10-18] MEDS: THIAMINE HCL 100 MG TABLET (FP) PO SCH (21:34)
[2016-10-18] MEDS: diphenhydrAMINE HCL 50 MG CAPSULE PO PRN (21:35)
[2016-10-19] MEDS: METHADONE HCL 40 MG DISPERSABLE TABLET PO SCH (06:30)
[2016-10-19] MEDS: BACITRACIN 0.9 GM PACKET TP SCH ×3 (06:30→21:13)
[2016-10-19] MEDS: GABAPENTIN 300 MG CAPSULE (FP) PO SCH ×3 (06:30→21:14)
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
[2016-10-19] MEDS: hydrOXYzine PAMOATE 50 MG CAPSULE (FP) PO PRN ×4 (08:23→22:02)
[2016-10-19] MEDS: IBUPROFEN 400 MG TABLET (FP) PO PRN (08:23)
[2016-10-19] MEDS: SULFAMETHOXAZOLE/TRIMETHOPRIM 800MG/160MG D.S. TABLET PO SCH ×4 (10:37→21:14)
[2016-10-19] MEDS: POTASSIUM CHLORIDE TABS 20 MEQ TABLET.ER (FP) PO SCH ×2 (10:37→21:14)
[2016-10-19] MEDS: LEVOFLOXACIN 500 MG TABLET (FP) PO SCH (10:37)
[2016-10-19] MEDS: PRENATAL VITAMINS W/ FOLIC ACID TABLET (FP) PO SCH (10:37)
[2016-10-19] MEDS: NICOTINE 14 MG/24 HOURS TOPICAL PATCH TD SCH (10:38)
[2016-10-19] MEDS ORDERED: SUVOREXANT 10 MG TABLET PO PRN (13:36)
[2016-10-19] MEDS: ACETAMINOPHEN 325 MG TABLET (FP) PO PRN (17:55)
[2016-10-19] MEDS: THIAMINE HCL 100 MG TABLET (FP) PO SCH (21:14)
[2016-10-20] MEDS: hydrOXYzine PAMOATE 50 MG CAPSULE (FP) PO PRN ×3 (03:21→14:23)
[2016-10-20] MEDS: METHADONE HCL 40 MG DISPERSABLE TABLET PO SCH (06:18)
[2016-10-20] MEDS: BACITRACIN 0.9 GM PACKET TP SCH ×3 (06:19→21:34)
[2016-10-20] MEDS: GABAPENTIN 300 MG CAPSULE (FP) PO SCH ×3 (06:19→21:34)
[2016-10-20] MEDS: LEVOFLOXACIN 500 MG TABLET (FP) PO SCH (09:33)
[2016-10-20] MEDS: POTASSIUM CHLORIDE TABS 20 MEQ TABLET.ER (FP) PO SCH ×2 (09:33→21:34)
[2016-10-20] MEDS: NICOTINE 14 MG/24 HOURS TOPICAL PATCH TD SCH (09:33)
[2016-10-20] MEDS: PRENATAL VITAMINS W/ FOLIC ACID TABLET (FP) PO SCH (09:33)
[2016-10-20] MEDS: SULFAMETHOXAZOLE/TRIMETHOPRIM 800MG/160MG D.S. TABLET PO SCH ×4 (09:33→21:34)
[2016-10-20] MEDS: IBUPROFEN 400 MG TABLET (FP) PO PRN (17:44)
[2016-10-20] MEDS: THIAMINE HCL 100 MG TABLET (FP) PO SCH (21:34)
[2016-10-20] MEDS: diphenhydrAMINE HCL 50 MG CAPSULE PO PRN (21:34)
[2016-10-20] MEDS: ACETAMINOPHEN 325 MG TABLET (FP) PO PRN (21:36)
[2016-10-21] MEDS: hydrOXYzine PAMOATE 50 MG CAPSULE (FP) PO PRN ×4 (01:53→21:10)
[2016-10-21] MEDS: METHADONE HCL 40 MG DISPERSABLE TABLET PO SCH (06:13)
[2016-10-21] MEDS: GABAPENTIN 300 MG CAPSULE (FP) PO SCH ×3 (06:14→21:10)
[2016-10-21] MEDS: BACITRACIN 0.9 GM PACKET TP SCH ×3 (06:14→21:09)
[2016-10-21] MEDS: POTASSIUM CHLORIDE TABS 20 MEQ TABLET.ER (FP) PO SCH ×2 (10:14→21:10)
[2016-10-21] MEDS: PRENATAL VITAMINS W/ FOLIC ACID TABLET (FP) PO SCH (10:14)
[2016-10-21] MEDS: LEVOFLOXACIN 500 MG TABLET (FP) PO SCH (10:14)
[2016-10-21] MEDS: SULFAMETHOXAZOLE/TRIMETHOPRIM 800MG/160MG D.S. TABLET PO SCH ×4 (10:14→22:00)
[2016-10-21] MEDS: NICOTINE 14 MG/24 HOURS TOPICAL PATCH TD SCH (10:15)
[2016-10-21] MEDS: IBUPROFEN 400 MG TABLET (FP) PO PRN (21:10)
[2016-10-21] MEDS: THIAMINE HCL 100 MG TABLET (FP) PO SCH (21:10)
[2016-10-22] MEDS: METHADONE HCL 40 MG DISPERSABLE TABLET PO SCH (06:20)
[2016-10-22] MEDS: GABAPENTIN 300 MG CAPSULE (FP) PO SCH ×3 (06:20→21:55)
[2016-10-22] MEDS: BACITRACIN 0.9 GM PACKET TP SCH ×3 (06:20→21:55)
[2016-10-22] MEDS: POTASSIUM CHLORIDE TABS 20 MEQ TABLET.ER (FP) PO SCH ×2 (09:24→21:55)
[2016-10-22] MEDS: SULFAMETHOXAZOLE/TRIMETHOPRIM 800MG/160MG D.S. TABLET PO SCH ×4 (09:24→21:55)
[2016-10-22] MEDS: PRENATAL VITAMINS W/ FOLIC ACID TABLET (FP) PO SCH (09:24)
[2016-10-22] MEDS: hydrOXYzine PAMOATE 50 MG CAPSULE (FP) PO PRN ×3 (09:24→21:54)
[2016-10-22] MEDS: LEVOFLOXACIN 500 MG TABLET (FP) PO SCH (09:24)
[2016-10-22] MEDS: IBUPROFEN 400 MG TABLET (FP) PO PRN (09:25)
[2016-10-22] MEDS: NICOTINE 14 MG/24 HOURS TOPICAL PATCH TD SCH (09:28)
[2016-10-22] MEDS: THIAMINE HCL 100 MG TABLET (FP) PO SCH (21:56)
[2016-10-23] MEDS: METHADONE HCL 40 MG DISPERSABLE TABLET PO SCH (06:24)
[2016-10-23] MEDS: GABAPENTIN 300 MG CAPSULE (FP) PO SCH ×3 (06:24→21:22)
[2016-10-23] MEDS: hydrOXYzine PAMOATE 50 MG CAPSULE (FP) PO PRN ×2 (06:26→10:42)
[2016-10-23] MEDS: BACITRACIN 0.9 GM PACKET TP SCH ×3 (06:27→21:23)
[2016-10-23] MEDS: SULFAMETHOXAZOLE/TRIMETHOPRIM 800MG/160MG D.S. TABLET PO SCH (10:42)
[2016-10-23] MEDS: IBUPROFEN 400 MG TABLET (FP) PO PRN ×2 (10:42→19:14)
[2016-10-23] MEDS: LEVOFLOXACIN 500 MG TABLET (FP) PO SCH (10:42)
[2016-10-23] MEDS: POTASSIUM CHLORIDE TABS 20 MEQ TABLET.ER (FP) PO SCH ×2 (10:42→21:23)
[2016-10-23] MEDS: PRENATAL VITAMINS W/ FOLIC ACID TABLET (FP) PO SCH (10:42)
[2016-10-23] MEDS: NICOTINE 14 MG/24 HOURS TOPICAL PATCH TD SCH (10:44)
[2016-10-23] MEDS: THIAMINE HCL 100 MG TABLET (FP) PO SCH (21:22)
[2016-10-23] MEDS: diphenhydrAMINE HCL 50 MG CAPSULE PO PRN (21:23)
[2016-10-24] MEDS: hydrOXYzine PAMOATE 50 MG CAPSULE (FP) PO PRN ×3 (00:18→21:08)
[2016-10-24] MEDS: ACETAMINOPHEN 325 MG TABLET (FP) PO PRN ×3 (00:18→21:06)
[2016-10-24] MEDS: GABAPENTIN 300 MG CAPSULE (FP) PO SCH ×3 (06:24→21:09)
[2016-10-24] MEDS: METHADONE HCL 40 MG DISPERSABLE TABLET PO SCH (06:24)
[2016-10-24] MEDS: BACITRACIN 0.9 GM PACKET TP SCH ×3 (06:24→21:08)
[2016-10-24] MEDS: POTASSIUM CHLORIDE TABS 20 MEQ TABLET.ER (FP) PO SCH ×2 (10:51→21:08)
[2016-10-24] MEDS: LEVOFLOXACIN 500 MG TABLET (FP) PO SCH (10:51)
[2016-10-24] MEDS: NICOTINE 14 MG/24 HOURS TOPICAL PATCH TD SCH (10:51)
[2016-10-24] MEDS: PRENATAL VITAMINS W/ FOLIC ACID TABLET (FP) PO SCH (10:51)
[2016-10-24] MEDS: THIAMINE HCL 100 MG TABLET (FP) PO SCH (21:06)
[2016-10-25] MEDS: diphenhydrAMINE HCL 50 MG CAPSULE PO PRN ×2 (00:13→23:52)
[2016-10-25] MEDS: METHADONE HCL 40 MG DISPERSABLE TABLET PO SCH (06:12)
[2016-10-25] MEDS: BACITRACIN 0.9 GM PACKET TP SCH ×3 (06:12→21:18)
[2016-10-25] MEDS: GABAPENTIN 300 MG CAPSULE (FP) PO SCH ×3 (06:12→21:18)
[2016-10-25] MEDS: hydrOXYzine PAMOATE 50 MG CAPSULE (FP) PO PRN ×4 (06:14→21:17)
[2016-10-25] MEDS: POTASSIUM CHLORIDE TABS 20 MEQ TABLET.ER (FP) PO SCH ×2 (10:10→21:18)
[2016-10-25] MEDS: PRENATAL VITAMINS W/ FOLIC ACID TABLET (FP) PO SCH (10:10)
[2016-10-25] MEDS: NICOTINE 14 MG/24 HOURS TOPICAL PATCH TD SCH (10:11)
[2016-10-25] MEDS: THIAMINE HCL 100 MG TABLET (FP) PO SCH (21:18)
[2016-10-25] MEDS: ACETAMINOPHEN 325 MG TABLET (FP) PO PRN (21:19)
[2016-10-26] MEDS: BACITRACIN 0.9 GM PACKET TP SCH ×3 (06:10→21:45)
[2016-10-26] MEDS: METHADONE HCL 40 MG DISPERSABLE TABLET PO SCH (06:10)
[2016-10-26] MEDS: GABAPENTIN 300 MG CAPSULE (FP) PO SCH ×3 (06:10→21:43)
[2016-10-26] MEDS: hydrOXYzine PAMOATE 50 MG CAPSULE (FP) PO PRN ×3 (06:13→21:43)
[2016-10-26] MEDS: NICOTINE 14 MG/24 HOURS TOPICAL PATCH TD SCH (10:25)
[2016-10-26] MEDS: POTASSIUM CHLORIDE TABS 20 MEQ TABLET.ER (FP) PO SCH (10:25)
[2016-10-26] MEDS: PRENATAL VITAMINS W/ FOLIC ACID TABLET (FP) PO SCH (10:25)
--- NOTE | 2016-10-26 13:59 | PN ---
S Progress Note Note: patient has voluntary movement of upper extremities,no seizure alert,oriented x 3 Laboratory Last Values Potassium 4.4 mmol/L (3.5-5.1) D 10/18/16 08:00 HIV 1&2 Antibody Screen Negative 10/18/16 08:00 HIV P24 Antigen Negative 10/18/16 08:00 this movement stopped by itself treatment observation cbc ,cmp,ammonia level in am close monitoring
[2016-10-26] MEDS: ACETAMINOPHEN 325 MG TABLET (FP) PO PRN (21:43)
[2016-10-26] MEDS: THIAMINE HCL 100 MG TABLET (FP) PO SCH (21:43)
[2016-10-27] MEDS: GABAPENTIN 300 MG CAPSULE (FP) PO SCH ×3 (06:01→21:48)
[2016-10-27] MEDS: METHADONE HCL 40 MG DISPERSABLE TABLET PO SCH (06:02)
[2016-10-27] MEDS: BACITRACIN 0.9 GM PACKET TP SCH ×3 (06:02→21:48)
[2016-10-27] MEDS: PRENATAL VITAMINS W/ FOLIC ACID TABLET (FP) PO SCH (09:57)
[2016-10-27] MEDS: hydrOXYzine PAMOATE 50 MG CAPSULE (FP) PO PRN ×3 (09:57→21:49)
[2016-10-27 10:10] LABS: MCH 33.6 pg (25.7-33.7); MCHC 32.9 g/dl (32.0-35.9); MEAN CELL VOLUME 102.3 fl (80-96); MEAN PLT VOLUME 8.6 fl (7.5-11.1); PLATELET COUNT 501 K/MM3 (134-434); RDW 14.4 % (11.9-15.9)
[2016-10-27] MEDS: NICOTINE 14 MG/24 HOURS TOPICAL PATCH TD SCH (10:38)
[2016-10-27 10:58] LABS: ALBUMIN 3.6 g/dl (3.4-5.0); ALK PHOS 79 U/L (45-117); ANION GAP 10 (8-16); BILIRUBIN,TOTAL 0.9 mg/dL (0.2-1.0); CO2 28 mmol/L (21-32); CREATININE 0.8 mg/dL (0.7-1.3); GLUCOSE,RANDOM 101 mg/dL (74-106); SGOT/AST 31 U/L (15-37); SGPT/ALT 24 U/L (12-78); TOT PROT 7.1 g/dl (6.4-8.2)
--- NOTE | 2016-10-27 11:11 | PN ---
BHS Progress Note Note: ammonia level is 60.89 will start on lactulose 20 grams po bid
[2016-10-27] MEDS: THIAMINE HCL 100 MG TABLET (FP) PO SCH (21:48)
[2016-10-27] MEDS: LACTULOSE 20 GM/30 ML UDC (FOR ORAL USE ONLY) PO SCH (21:50)
[2016-10-28] MEDS: BACITRACIN 0.9 GM PACKET TP SCH ×3 (06:00→23:46)
[2016-10-28] MEDS: GABAPENTIN 300 MG CAPSULE (FP) PO SCH ×3 (06:00→21:43)
[2016-10-28] MEDS: METHADONE HCL 40 MG DISPERSABLE TABLET PO SCH (06:00)
[2016-10-28] MEDS: NICOTINE 14 MG/24 HOURS TOPICAL PATCH TD SCH (09:47)
[2016-10-28] MEDS: PRENATAL VITAMINS W/ FOLIC ACID TABLET (FP) PO SCH (09:48)
[2016-10-28] MEDS: LACTULOSE 20 GM/30 ML UDC (FOR ORAL USE ONLY) PO SCH ×2 (09:48→21:44)
[2016-10-28] MEDS: hydrOXYzine PAMOATE 50 MG CAPSULE (FP) PO PRN ×3 (09:48→21:43)
[2016-10-28] MEDS: IBUPROFEN 400 MG TABLET (FP) PO PRN (14:41)
[2016-10-28] MEDS: THIAMINE HCL 100 MG TABLET (FP) PO SCH (21:43)
[2016-10-28] MEDS: diphenhydrAMINE HCL 50 MG CAPSULE PO PRN (23:46)
[2016-10-29] MEDS: hydrOXYzine PAMOATE 50 MG CAPSULE (FP) PO PRN ×4 (06:10→21:45)
[2016-10-29] MEDS: METHADONE HCL 40 MG DISPERSABLE TABLET PO SCH (06:10)
[2016-10-29] MEDS: GABAPENTIN 300 MG CAPSULE (FP) PO SCH ×3 (06:10→21:45)
[2016-10-29] MEDS: BACITRACIN 0.9 GM PACKET TP SCH ×3 (06:10→21:45)
[2016-10-29] MEDS: IBUPROFEN 400 MG TABLET (FP) PO PRN ×2 (10:32→21:47)
[2016-10-29] MEDS: PRENATAL VITAMINS W/ FOLIC ACID TABLET (FP) PO SCH (10:32)
[2016-10-29] MEDS: NICOTINE 14 MG/24 HOURS TOPICAL PATCH TD SCH (10:38)
[2016-10-29] MEDS: LACTULOSE 20 GM/30 ML UDC (FOR ORAL USE ONLY) PO SCH ×2 (10:38→21:50)
[2016-10-29] MEDS: THIAMINE HCL 100 MG TABLET (FP) PO SCH (21:49)
[2016-10-29] MEDS: diphenhydrAMINE HCL 50 MG CAPSULE PO PRN (23:45)
[2016-10-30] MEDS: IBUPROFEN 400 MG TABLET (FP) PO PRN ×3 (06:11→21:35)
[2016-10-30] MEDS: hydrOXYzine PAMOATE 50 MG CAPSULE (FP) PO PRN ×4 (06:11→21:36)
[2016-10-30] MEDS: GABAPENTIN 300 MG CAPSULE (FP) PO SCH ×3 (06:11→21:36)
[2016-10-30] MEDS: BACITRACIN 0.9 GM PACKET TP SCH ×3 (06:11→22:20)
[2016-10-30] MEDS: METHADONE HCL 40 MG DISPERSABLE TABLET PO SCH (06:11)
[2016-10-30] MEDS: NICOTINE 14 MG/24 HOURS TOPICAL PATCH TD SCH (10:01)
[2016-10-30] MEDS: PRENATAL VITAMINS W/ FOLIC ACID TABLET (FP) PO SCH (10:01)
[2016-10-30] MEDS: LACTULOSE 20 GM/30 ML UDC (FOR ORAL USE ONLY) PO SCH ×2 (10:02→22:20)
[2016-10-30] MEDS: THIAMINE HCL 100 MG TABLET (FP) PO SCH (21:35)
[2016-10-31] MEDS: GABAPENTIN 300 MG CAPSULE (FP) PO SCH ×3 (06:33→21:08)
[2016-10-31] MEDS: hydrOXYzine PAMOATE 50 MG CAPSULE (FP) PO PRN ×3 (06:36→21:09)
[2016-10-31] MEDS: METHADONE HCL 40 MG DISPERSABLE TABLET PO SCH (06:36)
[2016-10-31] MEDS: IBUPROFEN 400 MG TABLET (FP) PO PRN ×3 (06:36→21:10)
[2016-10-31] MEDS: BACITRACIN 0.9 GM PACKET TP SCH ×3 (06:37→23:10)
[2016-10-31] MEDS: PRENATAL VITAMINS W/ FOLIC ACID TABLET (FP) PO SCH (09:48)
[2016-10-31] MEDS: LACTULOSE 20 GM/30 ML UDC (FOR ORAL USE ONLY) PO SCH ×2 (09:49→21:08)
[2016-10-31] MEDS: NICOTINE 14 MG/24 HOURS TOPICAL PATCH TD SCH (09:49)
[2016-10-31] MEDS: THIAMINE HCL 100 MG TABLET (FP) PO SCH (21:08)
[2016-11-01] MEDS: METHADONE HCL 40 MG DISPERSABLE TABLET PO SCH (06:34)
[2016-11-01] MEDS: hydrOXYzine PAMOATE 50 MG CAPSULE (FP) PO PRN ×3 (06:34→21:12)
[2016-11-01] MEDS: BACITRACIN 0.9 GM PACKET TP SCH ×3 (06:34→21:10)
[2016-11-01] MEDS: IBUPROFEN 400 MG TABLET (FP) PO PRN ×3 (06:34→21:12)
[2016-11-01] MEDS: GABAPENTIN 300 MG CAPSULE (FP) PO SCH ×3 (06:35→21:10)
[2016-11-01] MEDS: LACTULOSE 20 GM/30 ML UDC (FOR ORAL USE ONLY) PO SCH ×2 (09:50→21:12)
[2016-11-01] MEDS: NICOTINE 14 MG/24 HOURS TOPICAL PATCH TD SCH (09:50)
[2016-11-01] MEDS: PRENATAL VITAMINS W/ FOLIC ACID TABLET (FP) PO SCH (09:50)
[2016-11-01] MEDS: THIAMINE HCL 100 MG TABLET (FP) PO SCH (21:10)
[2016-11-02] MEDS: METHADONE HCL 40 MG DISPERSABLE TABLET PO SCH (06:11)
[2016-11-02] MEDS: GABAPENTIN 300 MG CAPSULE (FP) PO SCH ×3 (06:11→22:04)
[2016-11-02] MEDS: BACITRACIN 0.9 GM PACKET TP SCH ×3 (06:11→22:06)
[2016-11-02] MEDS: hydrOXYzine PAMOATE 50 MG CAPSULE (FP) PO PRN ×4 (06:12→22:04)
[2016-11-02] MEDS: IBUPROFEN 400 MG TABLET (FP) PO PRN ×3 (06:12→22:05)
[2016-11-02] MEDS: PRENATAL VITAMINS W/ FOLIC ACID TABLET (FP) PO SCH (09:35)
[2016-11-02] MEDS: LACTULOSE 20 GM/30 ML UDC (FOR ORAL USE ONLY) PO SCH ×2 (09:35→22:04)
[2016-11-02] MEDS: NICOTINE 14 MG/24 HOURS TOPICAL PATCH TD SCH (09:37)
[2016-11-02] MEDS: THIAMINE HCL 100 MG TABLET (FP) PO SCH (22:04)
[2016-11-02] MEDS: diphenhydrAMINE HCL 50 MG CAPSULE PO PRN (23:52)
[2016-11-03] MEDS: BACITRACIN 0.9 GM PACKET TP SCH ×3 (06:07→21:22)
[2016-11-03] MEDS: GABAPENTIN 300 MG CAPSULE (FP) PO SCH ×3 (06:07→21:21)
[2016-11-03] MEDS: METHADONE HCL 40 MG DISPERSABLE TABLET PO SCH (06:07)
[2016-11-03] MEDS: hydrOXYzine PAMOATE 50 MG CAPSULE (FP) PO PRN ×4 (06:09→21:21)
[2016-11-03] MEDS: IBUPROFEN 400 MG TABLET (FP) PO PRN ×3 (06:09→21:21)
[2016-11-03] MEDS: PRENATAL VITAMINS W/ FOLIC ACID TABLET (FP) PO SCH (10:04)
[2016-11-03] MEDS: NICOTINE 14 MG/24 HOURS TOPICAL PATCH TD SCH (10:04)
[2016-11-03] MEDS: LACTULOSE 20 GM/30 ML UDC (FOR ORAL USE ONLY) PO SCH ×2 (10:04→21:21)
[2016-11-03] MEDS: THIAMINE HCL 100 MG TABLET (FP) PO SCH (21:21)
[2016-11-03] MEDS: diphenhydrAMINE HCL 50 MG CAPSULE PO PRN (22:44)
[2016-11-04] MEDS: hydrOXYzine PAMOATE 50 MG CAPSULE (FP) PO PRN ×2 (06:21→10:33)
[2016-11-04] MEDS: IBUPROFEN 400 MG TABLET (FP) PO PRN (06:21)
[2016-11-04] MEDS: GABAPENTIN 300 MG CAPSULE (FP) PO SCH (06:21)
[2016-11-04] MEDS: BACITRACIN 0.9 GM PACKET TP SCH (06:21)
[2016-11-04] MEDS: METHADONE HCL 40 MG DISPERSABLE TABLET PO SCH (06:21)
[2016-11-04 06:58] VITALS: BP 124/77; PULSE 82; TEMP 98.5
--- NOTE | 2016-11-04 10:20 | PN ---
Psychiatric Progress Note Vital Signs: Vital Signs Period Temp Pulse Resp BP Sys/Bermudez Pulse Ox Last 24 Hr 98.5 F 82 18-18 124/77 Date of Session: 11/04/16 Chief Complaint:: Discharge visit HPI: Patient addressed Opioid and Anxiolytic dependence comorbid with Bipolar II disorder. ROS: unremarkable Current Medications: Active Medications Generic Name Dose Route Start Last Admin Trade Name Freq PRN Reason Stop Dose Admin Al Hydroxide/Mg Hydroxide 30 ml 10/17/16 13:50 Mylanta Oral Suspension - PO Q6H PRN DYSPEPSIA Bacitracin 0.9 gm 10/18/16 13:08 11/04/16 06:21 Bacitracin - TP 0.9 gm TID TRISTON Administration Diphenhydramine HCl 50 mg 10/17/16 13:50 11/03/16 22:44 Benadryl - PO 50 mg HSMR1 PRN Administration FOR ITCHING Eucalyptus/Menthol/Phenol/Sorbitol 1 each 10/17/16 13:50 Cepastat Lozenge - MM Q4H PRN SORE THROAT Gabapentin 300 mg 10/17/16 22:00 11/04/16 06:21 Neurontin - PO 300 mg TID TRISTON Administration Guaifenesin 10 ml 10/17/16 13:50 Robitussin Dm - PO Q6H PRN COUGH Hydroxyzine Pamoate 50 mg 10/17/16 13:50 11/04/16 06:21 Vistaril - PO 50 mg Q4H PRN Administration AGITATION Ibuprofen 400 mg 10/17/16 13:50 11/04/16 06:21 Motrin - PO 400 mg Q6H PRN Administration PAIN Lactulose 20 gm 10/27/16 22:00 11/03/16 21:21 Cephulac (Oral Use) PO 20 gm BID TRISTON Administration Loperamide HCl 4 mg 10/17/16 13:50 Imodium - PO Q6H PRN DIARRHEA Magnesium Hydroxide 30 ml 10/17/16 13:50 Milk Of Magnesia - PO DAILY PRN CONSTIPATION Methadone HCl 200 mg 10/31/16 06:00 11/04/16 06:21 Dolophine - PO 200 mg DAILY@0600 TRISTON Administration Nicotine 14 mg 10/18/16 10:00 11/03/16 10:04 Nicoderm Patch - TD 14 mg DAILY TRISTON Administration Nicotine Polacrilex 2 mg 10/17/16 13:50 Nicorette Gum - BUC Q2H PRN NICOTINE REPLACEMENT RX Multivit/Folic Acid/Iron 1 tab 10/18/16 10:00 11/03/16 10:04 Vitamins (Sjr) - PO 1 tab DAILY TRISTON Administration Pseudoephedrine/Triprolidine 1 combo 10/17/16 13:50 Actifed - PO TID PRN NASAL CONGESTION Thiamine HCl 100 mg 10/17/16 22:00 11/03/16 21:21 Vitamin B1 - PO 100 mg HS TRISTON Administration Current Side Effect: No Lab tests ordered: No Lab tests reviewed: Yes Provider note:: Patient completed this program today.He has met his treatment goals and will continue to address his issues at [facility](200 mg po daily) at [facility].Patient reports finding that Neurontin 300 mg po tid helps to cope with mood instability,depression,anxiety.Scripts for 30 days provided.Patient identifies areas of difficulties and ways ,coping skills to utilize for maintaining of recovery. Supportive therapy provided.Patient is stable for discharge today. Total face to face time:: 30 Mental Status Exam - Mental Status Exam Alert and Oriented to: Time, Place, Person Cognitive Function: Grossly Intact Patient Appearance: Unkempt Mood: Anxious Affect: Mood Congruent Patient Behavior: Appropriate, Cooperative Speech Pattern: Clear Voice Loudness: Normal Thought Process: Goal Oriented Thought Disorder: Not Present Hallucinations: Denies Suicidal Ideation: Denies Homicidal Ideation: Denies Insight/Judgement: Fair Sleep: Fair Appetite: Good Muscle strength/Tone: Normal Gait/Station: Normal Psychiatric Treatment Plan - Problem List (1) Alcohol dependence Current Visit: Yes (2) Sedative hypnotic or anxiolytic dependence Current Visit: Yes (3) Substance induced mood disorder Current Visit: Yes (4) Substance-induced sleep disorder Current Visit: Yes (5) Bipolar II disorder Current Visit: Yes
[2016-11-04] MEDS: NICOTINE 14 MG/24 HOURS TOPICAL PATCH TD SCH (10:33)
[2016-11-04] MEDS: PRENATAL VITAMINS W/ FOLIC ACID TABLET (FP) PO SCH (10:33)
[2016-11-04] MEDS: LACTULOSE 20 GM/30 ML UDC (FOR ORAL USE ONLY) PO SCH (10:34)
== END 2016-11-04 11:15 | disposition home or self-care (01) | DRG 772 ==
LOC: YASAS 12:01 → Y3W 12:02
PROVIDERS: ADMIT Psychiatry & Neurology Psychiatry; ATTEND Psychiatry & Neurology Psychiatry
PROC: HZ42ZZZ Group Counseling for Substance Abuse Treatment, Cognitive-Behavioral (ICD-10-PCS; principal; 2016-10-17)
DX: F13.20 Sedative, hypnotic or anxiolytic dependence, uncomplicated (principal); F10.20 Alcohol dependence, uncomplicated; F17.210 Nicotine dependence, cigarettes, uncomplicated; F19.24 Other psychoactive substance dependence with psychoactive substance-induced mood disorder; F19.282 Other psychoactive substance dependence with psychoactive substance-induced sleep disorder; F31.81 Bipolar II disorder; E72.20 Disorder of urea cycle metabolism, unspecified; Z86.69 Personal history of other diseases of the nervous system and sense organs; Z90.89 Acquired absence of other organs; Z90.81 Acquired absence of spleen
CPT/HCPCS: 36415; 80053; 82140; 84132; 85027; 87389